=== PATIENT | male | born 1975 | race Caucasian/White ===

== ENCOUNTER 2017-04-02 21:28 | Emergency (ER) | payer OTHER ==
[~2017-04-02] VITALS: Ht 180.3 cm; Wt 86.6 kg
[~2017-04-02 21:28] MED LIST: BUPRTAB51 PO; CLON0.5T3 PO; TRAZ100T29 PO; ZNTT/150 PO
[2017-04-02 21:38] VITALS: TEMP 36.8; Ht 180.3 cm; Wt 86.6 kg
[2017-04-02] MEDS ORDERED: KETOROLAC TROMETHAMINE 10 MG TAB PO STA (22:29)
[2017-04-02] MEDS ORDERED: KETO10TA PO (22:35)
[2017-04-02] MEDS ORDERED: SULF800T23 PO (22:35)
[2017-04-02] MEDS ORDERED: CEPH500C2 PO (22:35)
[2017-04-02] MEDS ORDERED: SEPTRA DS HOME PACK 1 EA VIAL PO ONE (22:45)
[2017-04-02] MEDS ORDERED: CEPHALEXIN 500MG HOME PACK 1 EA BTL PO ONE (22:45)
[2017-04-02] MEDS ORDERED: EMPTY 8 DRAM VIAL ONE (22:46)
[2017-04-02 22:55] VITALS: BP 141/88; PULSE 86; O2SAT 96
--- NOTE | 2017-04-03 23:28 | EMERGENCY ROOM VISIT NOTE ---
ED Visit Note First contact with patient: 21:51 CHIEF COMPLAINT: Infection. HISTORY OF PRESENT ILLNESS: is an 41-year-old white male who ambulates into the ED complaining of a growth over the distal left gluteal cleft. Patient reports he has been having pain over the left gluteal cleft for the last 3 days. He reports he touched this area and noted a slowly growing painful lump that was warm to the touch. Currently he describes his discomfort as a pressure sensation in this area. He rates his discomfort 7/10. His pain is nonradiating. His pain worsens with palpation and sitting on his buttocks. He has not identified any alleviating factors related to the pain. He has not taken any medications for pain prior to arrival at the hospital. He denies any associated fevers, chills, sweats, other skin eruptions, chest pain, shortness of breath, abdominal pain, diarrhea, constipation, rectal bleeding, black/tarry stools, urinary symptoms. REVIEW OF SYSTEMS: As noted above in History of Present Illness; 8 by systems were reviewed with the patient and found to be negative unless noted above otherwise. PAST MEDICAL HISTORY: Asthma, bronchitis, pneumonia and status post wisdom teeth extraction. CURRENT MEDICATION: Gabapentin, Ambien, Wellbutrin and Lamictal. ALLERGIES TO MEDICATION: Tegretol. SOCIAL HISTORY: Patient is currently employed; he feels safe in his home environment; he admits to tobacco and alcohol use. PHYSICAL EXAM: Vital Signs: Date Time Temp Pulse Resp B/P (MAP) Pulse Ox O2 Delivery O2 Flow Rate FiO2 04/02/17 22:55 86 18 141/88 96 04/02/17 21:38 36.8 92 16 136/92 96 Room Air General: 41 year-old white male in mild distress due to pain, nontoxic appearing , afebrile and hemodynamically stable. Neurological: Awake, alert and oriented to person, place and time. Answering questions appropriately and following commands. Skin: Warm, dry and pink. Buttocks: There is an indurated area in the distal aspect of the left gluteal cleft which measures about 4 cm in diameter. This area is indurated but not fluctuant. There is no pointing or drainage. Surrounding the area is mild erythema but no lymphangitis. No local lymphadenopathy.. Thorax: Lungs sounds are clear to auscultation and equal bilaterally with symmetrical chest wall movement. No wheezing, rales or rhonchi. No increased respiratory effort. Abdomen: Flat, soft and nontender. Positive bowel sounds in all quadrants. No guarding or rigidity. ED COURSE: Patient is assessed as noted above. Patient's medication list was reviewed. Patient was offered pain medication and refused. Patient was educated about his condition and instructed on his treatment plan; he verbalized understanding and agreement with this plan. CLINICAL IMPRESSION: Early pilonidal abscess. DISPOSITION: Patient discharged to home in stable condition; prior to departure he was reassessed and subjectively reported he was feeling better and rated his discomfort 2/10. PLAN: Patient was prescribed 10 mg of Toradol every 6 hours as needed for pain; he was offered narcotics and refused. Patient was prescribed Bactrim DS and Keflex 500 mg and instructed on achieves. Patient was encouraged to use a doughnut pillow and instructed on its use. Patient was educated on signs of worsening and infection. Patient was encouraged to follow-up in the ED for recheck in 36-48 hours. Patient was encouraged return the ED sooner for worsening pain, worsening swelling, fevers, other signs of infection or any new/concerning symptoms.
== END 2017-04-02 22:58 | disposition home or self-care (01) ==
LOC: C.EDB 21:31 → C.EDD 22:58
DX: L05.01 Pilonidal cyst with abscess (principal); J45.909 Unspecified asthma, uncomplicated; Z87.01 Personal history of pneumonia (recurrent); Z79.899 Other long term (current) drug therapy; Z72.0 Tobacco use

== ENCOUNTER 2017-04-04 15:02 | Emergency (ER) | payer OTHER ==
[~2017-04-04] VITALS: Ht 180.3 cm; Wt 88.0 kg
[~2017-04-04 15:02] MED LIST changes: +CEPH500C2 PO; +KETO10TA PO; +SULF800T23 PO
[2017-04-04 15:06] VITALS: BP 122/79; PULSE 77; TEMP 36.6; O2SAT 95; Ht 180.3 cm; Wt 88.0 kg
[2017-04-04] MEDS ORDERED: LAMO150T32 PO (15:42)
[2017-04-04] MEDS ORDERED: BUPR200T2 PO (21:48)
[2017-04-04] MEDS ORDERED: ZOLP10TA PO (21:48)
[2017-04-04] MEDS ORDERED: GABA-112 PO (21:48)
--- NOTE | 2017-04-04 21:48 | EMERGENCY ROOM VISIT NOTE ---
History First contact with patient: 15:10 Chief Complaint: WOUND INFECTION Stated Complaint: PILONIDAL ABSCESS Nursing Triage Summary: here for a wound recheck for pilondal cyst. History of Present Illness The patient is a 41 year old white male who presents to the Emergency Room for reevaluation of his right buttock. Patient was seen here 2 days ago for a possible pilonidal cyst versus skin abscess. He was placed on antibiotics and instructed to sit on a donut cushion. He states he is here for reevaluation. Pain has decreased considerably. He denies any fevers or chills. He thinks the area is less red. No fevers or chills. No other complaints. Review of Systems Unchanged from previous exam Past Medical/Surgical History Medical Problems: (1) Asthma (2) Bipolar 1 disorder (3) Bronchitis (4) HYPERTENSION NOS (5) Pneumonia (6) TOBACCO USE DISORDER Family History Migraine Social History Smoking Status: Never Smoker Smokeless Tobacco Use: No Alcohol Use: occasionally Drug Use: none Marital Status: single Housing Status: lives alone Occupation Status: employed Current/Historical Medications Scheduled Bupropion (Wellbutrin Sr), 200 MG PO BID Cephalexin Monohydrate (Keflex), 500 MG PO QID Gabapentin (Neurontin), 100 MG PO TID Lamotrigine (Lamictal), 150 MG PO BID Sulfa/Trimethoprim (Bactrim Ds 800MG/160MG), 1 TAB PO BID Scheduled PRN Ketorolac Tromethamine (Toradol), 10 MG PO Q6H PRN for Pain Zolpidem Tartrate (Ambien), 10 MG PO HS PRN for Sleep Physical Exam Vital Signs Date Time Temp Pulse Resp B/P (MAP) Pulse Ox O2 Delivery O2 Flow Rate FiO2 04/04/17 15:06 36.6 77 16 122/79 95 Room Air Pain Rating (0-10): 0 Physical Exam Gen.: Well-developed, well-nourished, middle-aged white male, in no acute distress. Sitting on a bed. Alert and oriented. Skin:Warm and dry with good turgor. No rashes or lesions. No ecchymosis. The patient is not diaphoretic. No abrasions. He has a firm subcutaneous area that measures approximately 4-5 mm in the right buttock very close to the gluteal cleft. Nonfluctuant. Nothing is expressible. There is no open wound. Area is slightly tender to touch. He has no pain in the pilonidal area or in the left buttock. There is nothing to suggest perirectal abscess. Musculoskeletal: Ambulatory with a normal gait. Medical Decision & Procedures ED Course Patient was educated regarding today's findings. Conservative care measures were discussed. Clinically it has improved considerably. Subjectively it is also improved considerably. I did recommend that he continue on the antibiotics and finished them out. Apply warm moist compresses to the area several times per day to improve his healing rate. Return to the ED for any acute worsening of symptoms or follow up with his PCP. He currently does not require any incision and drainage. If it should become worse, he knows this is a possibility. Medical Decision Possibility of subcutaneous abscess, pilonidal cyst, and perirectal abscess were considered. Medication Reconcilliation Current Medication List: was personally reviewed by me Blood Pressure Screening Patient's blood pressure: Normal blood pressure Impression Primary Impression: Skin abscess Departure Information Dispostion Home / Self-Care Condition GOOD Forms WORK / SCHOOL INSTRUCTIONS, HOME CARE DOCUMENTATION FORM, IMPORTANT VISIT INFORMATION Patient Instructions My [facility] Additional Instructions Finish taking the antibiotics Tylenol and Motrin every 6 hours as needed for discomfort Warm moist compresses to the area several times per day may improve healing Return to the ED or follow-up with your PCP as needed Problem Qualifiers Primary Impression: Skin abscess Site of cutaneous abscess: buttock Qualified Codes: L02.31 - Cutaneous abscess of buttock
== END 2017-04-04 15:26 | disposition home or self-care (01) ==
LOC: C.EDB 15:04 → C.EDD 15:26
DX: L02.31 Cutaneous abscess of buttock (principal); J45.909 Unspecified asthma, uncomplicated; F31.9 Bipolar disorder, unspecified; I10 Essential (primary) hypertension

== ENCOUNTER → 2017-06-10 | Outpatient (CLI) | payer OTHER ==
[~2017-06-10] MED LIST changes: +BUPR200T2 PO; -BUPRTAB51 PO; -CEPH500C2 PO; -CLON0.5T3 PO; +GABA-112 PO; -KETO10TA PO; +LAMO150T32 PO; -SULF800T23 PO; -TRAZ100T29 PO; -ZNTT/150 PO; +ZOLP10TA PO
== END | disposition home or self-care (01) ==
LOC: C.LAB 07:49
PROVIDERS: ATTEND Physician Assistant
DX: R19.7 Diarrhea, unspecified (principal)